=== PATIENT | male | born 1950 | race Caucasian/White ===

== ENCOUNTER 2021-01-09 21:09 | Emergency (ER) | payer MEDICARE ==
[~2021-01-09] VITALS: Ht 175.3 cm; Wt 85.0 kg
[2021-01-09] MEDS ORDERED: ondansetron/PF 4mg/2ml inj IV ONE (21:30)
--- NOTE | 2021-01-09 21:30 | NUR ---
updated Dr Carrillo of [facility] CVA and aplastic anemia and ALOC symptoms currently.
[2021-01-09 21:51] LABS: ALANINE AMINOTRANSFERASE 22 U/L (12-78); ALBUMIN 3.7 G/DL (3.4-5.0); ALKALINE PHOSPHATASE 57 IU/L (46-116); ANION GAP 12 (8-16); ASPARTATE AMINO TRANSFERASE 29 U/L (10-37); BLOOD UREA NITROGEN 28 MG/DL (7-18); BUN/CREATININE RATIO 13.9 (5.4-32.0); CALCIUM 8.7 MG/DL (8.5-10.1); CHLORIDE 94 MMOL/L (99-107); CREATININE 2.01 MG/DL (0.60-1.10); GLUCOSE 146 MG/DL (70-104); POTASSIUM 4.1 MMOL/L (3.5-5.1); SODIUM 130 MMOL/L (135-145); TOTAL CARBON DIOXIDE 24.4 MMOL/L (24-32); eGFR 33 ML/MIN
[2021-01-09 21:52] LABS: ALBUMIN/GLOBULIN RATIO 1.2 (1.1-1.5); TOTAL PROTEIN 6.7 G/DL (6.4-8.2)
[2021-01-09 21:54] LABS: ETHANOL < 0.010 GM/DL (0.0-0.010); TROPONIN I < 0.04 NG/ML (0.0-0.05)
--- NOTE | 2021-01-09 21:55 | NUR ---
PT uncooperative and unable to understand or follow instructions. Pt continually tries to climb out of bed and pulls at lines. Non behavioral restraints ordered for pt safety and to facility monitoring of condition. Pt is agitated, but does not speak to staff. He occassionally mutters,"fuck", during periods of frustration. At one point he did ask to have restraints removed and patient was educated for reason for restraints and criteria for removal. Pt did not indicate understanding. Pt unable to hold still for CT at this time. notified.
[2021-01-09 22:17] LABS: HEMATOCRIT 27.1 % (42.0-52.0); HEMOGLOBIN 9.7 g/dl (14.0-17.9); MEAN CORPUSCULAR HEMOGLOBIN 41.5 PG (27.0-31.0); MEAN CORPUSCULAR HGB CONC 35.9 g/dL (33.0-36.5); MEAN CORPUSCULAR VOLUME 115.5 FL (78-98); MEAN PLATELET VOLUME 9.7 FL (7.4-10.4); RED BLOOD COUNT 2.35 X10'6 (4.70-6.10); WHITE BLOOD COUNT 1.6 X10'3 (4.5-11.0)
[2021-01-09 22:21] LABS: PLATELET COUNT 35 X10'3 (140-440)
[2021-01-09 22:44] LABS: LACTIC SEPSIS 2.2 MMOL/L (0.4-2.0)
[2021-01-09] MEDS ORDERED: LORazepam 2 mg/ml vial IV ONE (22:55)
[2021-01-09] MEDS ORDERED: levetiracetam inj 500 MG in normal saline 100ml IV soln 95 ML IV ONE (22:55)
[2021-01-09] MEDS ORDERED: dexamethasone sod phosphate 10mg/ml inj IV STA (23:25)
--- NOTE | 2021-01-09 23:30 | NUR ---
Pt given 1 mg ativan for agitation. Pt was able to lie still for CT scan. Pt sleeping at this time. Restraints removed to care for pt needs r/t incontinence but were not replaced as pt fell asleep after finishing care and warm blankets were provided.
[2021-01-09 23:34] LABS: ANISOCYTOSIS 1+; BURR CELLS FEW; PLATELET ESTIMATE DECREASED; POLYCHROMASIA FEW; SCHISTOCYTES FEW; TEAR DROP CELLS FEW; TOTAL CELLS COUNTED 100
[2021-01-10 00:04] VITALS: BP 145/85
[2021-01-10 00:55] LABS: PARTIAL THROMBOPLASTIN TIME 25 SECONDS (22-32)
== END 2021-01-10 00:38 | disposition short-term general hospital (02) ==
LOC: ER 21:11
DX: I61.6 Nontraumatic intracerebral hemorrhage, multiple localized (principal); Z20.822 Contact with and (suspected) exposure to COVID-19; I60.9 Nontraumatic subarachnoid hemorrhage, unspecified
CPT/HCPCS: 36415; 70450; 71045; 80053; 80320; 82140; 83605; 84484; 85007; 85025; 85610; 85730; 86885; 86900; 86901; 87040; 87635; 93005; 96365; 96375; 99291; C9803; J1100; J1953; J2060; J2405

== ENCOUNTER 2021-11-01 13:06 | Emergency (ER) | payer MEDICARE ==
[~2021-11-01] VITALS: Ht 165.1 cm; Wt 63.6 kg
[~2021-11-01 13:06] MED LIST: ACYC-128 PO; ATOR20TA66 PO; ATOV750O2 PO; CARV6.253 PO; CYAN-34 PO; CYCL25CA PO; DOCU-195 PO; ELTR50TA PO; LISI10TA27 PO; LOTE5GEL RIGHTEYE
[2021-11-01] MEDS ORDERED: normal saline 1000ML IV soln IVB ONE (13:25)
[2021-11-01 13:27] VITALS: BP 125/71
[2021-11-01 13:53] LABS: HEMATOCRIT 32.7 % (42.0-52.0); RED BLOOD COUNT 3.32 X10'6 (4.70-6.10)
[2021-11-01 13:54] LABS: BASOPHILS % (AUTO) 0.6 % (0-1); EOSINOPHILS # (AUTO) 0.2 X10'3 (0-0.9); EOSINOPHILS % (AUTO) 3.7 % (0-6); HEMOGLOBIN 11.3 g/dl (14.0-17.9); LYMPHOCYTES # (AUTO) 0.9 X10'3 (1.1-4.8); LYMPHOCYTES % (AUTO) 17.4 % (21-51); MEAN CORPUSCULAR HEMOGLOBIN 33.9 PG (27.0-31.0); MEAN CORPUSCULAR HGB CONC 34.5 g/dL (33.0-36.5); MEAN CORPUSCULAR VOLUME 98.4 FL (78-98); MEAN PLATELET VOLUME 7.6 FL (7.4-10.4); MONOCYTES # (AUTO) 0.8 X10'3 (0-0.9); NEUTROPHILS # (AUTO) 3.4 X10'3 (1.8-7.7); NEUTROPHILS % (AUTO) 63.3 % (42-75); PLATELET COUNT 162 X10'3 (140-440); RED CELL DISTRIBUTION WIDTH 13.1 % (11.5-14.5); WHITE BLOOD COUNT 5.3 X10'3 (4.5-11.0)
[2021-11-01 14:06] LABS: ALANINE AMINOTRANSFERASE 25 U/L (12-78); ALBUMIN 3.6 G/DL (3.4-5.0); ALBUMIN/GLOBULIN RATIO 1.2 (1.1-1.5); ALKALINE PHOSPHATASE 60 IU/L (46-116); ANION GAP 9 (8-16); ASPARTATE AMINO TRANSFERASE 15 U/L (10-37); BILIRUBIN,TOTAL 0.6 MG/DL (0.1-1.0); BLOOD UREA NITROGEN 33 MG/DL (7-18); BUN/CREATININE RATIO 25.2 (5.4-32.0); CALCIUM 8.1 MG/DL (8.5-10.1); CHLORIDE 106 MMOL/L (99-107); CREATININE 1.31 MG/DL (0.60-1.10); GLUCOSE 105 MG/DL (70-104); POTASSIUM 4.2 MMOL/L (3.5-5.1); SODIUM 139 MMOL/L (135-145); TOTAL CARBON DIOXIDE 23.6 MMOL/L (24-32); TOTAL PROTEIN 6.7 G/DL (6.4-8.2); eGFR 54 ML/MIN
[2021-11-01 14:25] LABS: PLATELET ESTIMATE NORMAL; TOTAL CELLS COUNTED 100
== END 2021-11-01 19:57 | disposition home or self-care (01) ==
LOC: ER 13:06
DX: R55 Syncope and collapse (principal); E86.0 Dehydration; R42 Dizziness and giddiness; F32.9 Major depressive disorder, single episode, unspecified; I10 Essential (primary) hypertension; Z86.73 Personal history of transient ischemic attack (TIA), and cerebral infarction without residual deficits; Z86.2 Personal history of diseases of the blood and blood-forming organs and certain disorders involving the immune mechanism; Z86.14 Personal history of Methicillin resistant Staphylococcus aureus infection; Z98.890 Other specified postprocedural states; Z79.2 Long term (current) use of antibiotics; Z79.899 Other long term (current) drug therapy
CPT/HCPCS: 71045; 80053; 82948; 84484; 85007; 85025; 93005; 99285; J7030